=== PATIENT | female | born 1990 | race Two or more races ===

== ENCOUNTER 2017-05-23 10:56 | Emergency (ER) | payer SELFPAY ==
[2017-05-23] MEDS ORDERED: 0.9 % SODIUM CHLORIDE 10 ML DISP.SYRIN. IV ×2 (11:30)
[2017-05-23 11:39] LABS: BASO % 0 % (0-3); EOS % 1 % (0-3); HEMATOCRIT 35.5 % (36.0-47.0); HEMOGLOBIN 12.2 g/dL (12.0-15.5); LYMPH # 2.1 x10^3/uL (1.0-4.8); LYMPH % 28 % (24-48); MEAN CORPUSCULAR HEMOGLOBIN 31 pg (25-35); MEAN CORPUSCULAR HGB CONC 35 g/dL (31-37); MEAN CORPUSCULAR VOLUME 90 fL (79-100); MONO # 0.7 x10^3/uL (0.0-1.1); MONO % 9 % (0-9); NEUT # 4.8 x10^3uL (1.8-7.7); NEUT % 63 % (31-73); PLATELET COUNT 232 x10^3/uL (140-400); RED BLOOD COUNT 3.94 x10^6/uL (3.50-5.40); RED CELL DISTRIBUTION WIDTH 13.5 % (11.5-14.5); WHITE BLOOD COUNT 7.6 x10^3/uL (4.0-11.0)
[2017-05-23 11:40] LABS: ADD MAN DIFF? YES
[2017-05-23 11:46] LABS: BILIRUBIN,URINE NEGATIVE (NEG); CLARITY,URINE CLEAR; COLOR,URINE YELLOW; GLUCOSE,URINE NEGATIVE (NEG); NITRITE,URINE NEGATIVE (NEG); PROTEIN,URINE NEGATIVE (NEG-TRACE); UROBILINOGEN,URINE 0.2 mg/dL (0.2 mg/dL)
[2017-05-23 12:01] LABS: BACTERIA,URINE 0 /HPF (0-FEW); RBC,URINE 0 /HPF (0-2); SQUAMOUS EPITHELIAL CELL,UR FEW /LPF; WBC,URINE 0 /HPF (0-4)
[2017-05-23 12:11] LABS: ANION GAP 9 (6-14); BLOOD UREA NITROGEN 5 mg/dL (7-20); CALCIUM 9.2 mg/dL (8.5-10.1); CARBON DIOXIDE 26 mmol/L (21-32); CHLORIDE 101 mmol/L (98-107); CREATININE 0.4 mg/dL (0.6-1.0); GFR 196.1; GLUCOSE 78 mg/dL (70-99); POTASSIUM 3.7 mmol/L (3.5-5.1); SODIUM 136 mmol/L (136-145)
[2017-05-23 12:16] LABS: ALK PHOS 77 U/L (46-116); ALT (SGPT) 11 U/L (14-59); AST (SGOT) 10 U/L (15-37); DIRECT BILIRUBIN 0.1 mg/dL (0.0-0.2); TOTAL BILIRUBIN 0.2 mg/dL (0.2-1.0)
[2017-05-23] MEDS: ONDANSETRON PF 4 MG/2 ML VIAL. IV ×2 (12:30)
[2017-05-23 12:50] LABS: % BANDS 2 % (0-9); % LYMPHS 39 % (24-48); % METAS 1 % (0-0); % MONOS 3 % (0-10); % SEGS 55 % (35-66)
[2017-05-23 12:51] LABS: PLT ESTIMATE ADEQUATE (ADEQUATE)
[2017-05-23] MEDS: ACETAMINOPHEN 325 MG TABLET. PO ×2 (13:17)
[2017-05-23] MEDS: IV NORMAL SALINE 1000ML BAG 1,000 ML IV ×2 (13:17)
[2017-05-23 13:38] LABS: INFLUENZA A PATIENT NEGATIVE (NEGATIVE); INFLUENZA B PATIENT NEGATIVE (NEGATIVE); OBC FLU VALID
== END 2017-05-23 16:00 | disposition home or self-care (01) ==
LOC: ER 10:56
DX: O20.0 Threatened abortion (principal); O42.912 Preterm premature rupture of membranes, unspecified as to length of time between rupture and onset of labor, second trimester; Z3A.18 18 weeks gestation of pregnancy
CPT/HCPCS: 36415; 76805; 80048; 80076; 81001; 85007; 85025; 87804; 87804-59; 96360; 99285-25; J7030